=== PATIENT | male | born 1985 | race Caucasian/White ===

== ENCOUNTER 2021-03-26 22:46 | Emergency (ER) | payer SELFPAY ==
[2021-03-26 22:51] VITALS: BP 126/79; PULSE 82; TEMP 98.5; BMI 29.2
[2021-03-26] MEDS ORDERED: LIDOCAINE HCL 1%, 10 MG/ML (50 mL VIAL) SQ ONE (23:02)
== END 2021-03-27 00:44 | disposition home or self-care (01) ==
LOC: JER 22:46
PROC: 0HQDXZZ Repair Right Lower Arm Skin, External Approach (ICD-10-PCS; principal; 2021-03-26)
DX: S51.811A Laceration without foreign body of right forearm, initial encounter (principal); W25.XXXA Contact with sharp glass, initial encounter
CPT/HCPCS: 73090-TC-RT-FY; 99283-25

== ENCOUNTER 2022-04-29 12:55 | Emergency (ER) | payer SELFPAY ==
[2022-04-29 13:02] VITALS: BP 114/83; PULSE 78; RESP 18; TEMP 98.1; BMI 29.2
[2022-04-29] MEDS ORDERED: ERYTHROMYCIN 0.5% OPHTHALMIC OINTMENT 3.5 GM TUBE OD ONE (13:49)
[2022-04-29] MEDS ORDERED: ERYTHROMYCIN 0.5% OPHTHALMIC OINTMENT 3.5 GM TUBE ONE (13:52)
== END 2022-04-29 14:45 | disposition home or self-care (01) ==
LOC: JERFT 12:55
DX: T15.81XA Foreign body in other and multiple parts of external eye, right eye, initial encounter (principal)
CPT/HCPCS: 99283-25